=== PATIENT | female | born 1990 | race Hispanic/Latino ===

== ENCOUNTER 2019-06-26 04:42 | Outpatient (CLI) | payer MEDICAID ==
[2019-06-26] MEDS ORDERED: LACTATED RINGERS 1,000 ML ONE (05:49)
[2019-06-26] MEDS ORDERED: LACTATED RINGERS 1,000 ML IV SCH (07:00)
[2019-06-26 08:43] VITALS: BP 115/72
== END 2019-06-26 09:00 | disposition home or self-care (01) ==
LOC: TRG 04:42
PROVIDERS: ATTEND Obstetrics & Gynecology
DX: O62.9 Abnormality of forces of labor, unspecified (principal); O09.213 Supervision of pregnancy with history of pre-term labor, third trimester; O26.893 Other specified pregnancy related conditions, third trimester; R10.9 Unspecified abdominal pain; O99.013 Anemia complicating pregnancy, third trimester; Z3A.38 38 weeks gestation of pregnancy
CPT/HCPCS: 59025; J7120; 96360

== ENCOUNTER 2021-08-02 21:48 | Emergency (ER) | payer SELFPAY ==
[2021-08-02 22:15] VITALS: BP 108/52
[2021-08-02] MEDS ORDERED: IBUPROFEN 600 MG TAB PO ONE (23:39)
[2021-08-02] MEDS ORDERED: SODIUM CHLORIDE 0.9% 1000 ML 1,000 ML IV ONE (23:39)
[2021-08-02] MEDS ORDERED: ACETAMINOPHEN 500 MG TAB PO ONE (23:39)
[2021-08-03 00:39] LABS: Basophils % (Auto) 0.2 % (0.0-1.8); Eosinophils % (Auto) 0.2 % (0.0-4.3); Hematocrit 30.2 % (30.3-42.9); Hemoglobin 10.5 gm/dl (10.1-14.3); Lymphocytes # (Auto) 0.8 K/mm3 (1.2-5.4); Lymphocytes % (Auto) 7.8 % (13.4-35.0); Mean Corpuscular HGB Conc 35 % (30-34); Mean Corpuscular Volume 89 fl (79-97); Monocytes # (Auto) 1.5 K/mm3 (0.0-0.8); Monocytes % (Auto) 14.9 % (0.0-7.3); Platelet Count 223 K/mm3 (140-440); Red Cell Distribution Width 13.7 % (13.2-15.2)
[2021-08-03 00:55] LABS: Alanine Aminotransferase 54 units/L (7-56); Albumin 2.9 g/dL (3.9-5); BUN/Creatinine Ratio 8; Blood Urea Nitrogen 7 mg/dL (7-17); Calcium 9.2 mg/dL (8.4-10.2); Hemolysis Index 0
[2021-08-03] MEDS ORDERED: POTASSIUM CHLORIDE ER 20 MEQ TAB PO ONE (01:00)
--- NOTE | 2021-08-03 01:49 | XRay Report ---
CHEST 2 VIEWS INDICATION / CLINICAL INFORMATION: COUGH, FEVER STUDY TIME: 131 COMPARISON: None available. FINDINGS: SUPPORT DEVICES: None. HEART / MEDIASTINUM: No significant abnormality. LUNGS / PLEURA: No significant acute pulmonary or pleural abnormality. No pneumothorax. ADDITIONAL FINDINGS: No significant additional findings. Signer Name: Dhruv Jones MD Signed: 08/03/2021 1:45 AM Workstation Name: [id number]
[2021-08-03] MEDS ORDERED: ACETAMINOPHEN 500 MG TAB ONE (02:09)
[2021-08-03] MEDS ORDERED: IBUPROFEN 600 MG TAB PO ONE (02:09)
[2021-08-03 03:15] LABS: Bacteria,Urine 3+ /HPF (Negative); Mucus,Urine FEW /HPF
[2021-08-03 03:31] LABS: Bilirubin,Urine Negative (Negative); Blood,Urine 3+ (Negative); Color,Urine Straw (Yellow)
--- NOTE | 2021-08-03 03:42 | Emergency Department Report ---
- General Chief Complaint: Fever Stated Complaint: GENERAL WEAKNESS Source: patient Mode of arrival: Ambulatory Limitations: No Limitations - History of Present Illness Initial Comments: Patient is a 30-year-old white female with no past medical history who presents to the ED with complaint of acute onset persistent nasal and sinus congestion, frontal sinus pressure, persistent dry cough, intermittent fever and chills with diaphoresis, generalized weakness and fatigue, nausea and vomiting for the last 4 days. Patient states that she has been taking [id number] decongestant medications with no relief. Patient states that no one else at home is had similar symptoms. Patient denies dizziness, syncope, chest pain or shortness of breath, abdominal pain, dysuria, urinary frequency and urgency, vaginal bleeding, vaginal discharge, or change in vision or sore throat. MD Complaint: fever, cough, rhinorrhea, nasal congestion, sinus pain, other (diffuse body aches and pains; frontal sinus headache) -: Sudden, days(s) (4) Severity: severe Severity scale (0 -10): 7 Quality: sharp, dull, aching Consistency: constant Improves With: nothing Worsens With: nothing Context: sick contacts Associated Symptoms: denies other symptoms, fever, chills, myalgias, headache, rhinorrhea, nasal congestion, cough, nausea, vomiting. denies: diaphoresis, sore throat, stiff neck, chest pain, shortness of breath, abdominal pain, diarrhea, dysuria, rash, confusion, right sweats, epistaxis, hoarseness, ear pain Treatments Prior to Arrival: "cold medicine" - Related Data Previous Rx's Medication Instructions Recorded Last Taken Type Ferrous Sulfate [Feosol 325 MG tab] 325 mg PO BID #60 tablet 07/05/19 Unknown Rx Vit-Fe Fumar-FA [ 1 each PO QDAY #30 tablet 07/05/19 Unknown Rx Vitamin] Amoxicillin/Potassium Clav 1 each PO Q12H #20 tablet 08/03/21 Unknown Rx [Augmentin 875-125 Tablet] Benzonatate [Tessalon Perles] 100 mg PO Q8HR #30 capsule 08/03/21 Unknown Rx Cetirizine HCl [Zyrtec 10mg tab] 10 mg PO DAILY #30 tablet 08/03/21 Unknown Rx Ibuprofen [Motrin 600 MG tab] 600 mg PO Q6H #30 tablet 08/03/21 Unknown Rx Ondansetron [Zofran Odt] 4 mg PO Q6HR PRN #20 tab.rapdis 08/03/21 Unknown Rx Allergies Allergy/AdvReac Type Severity Reaction Status Date / Time No Known Allergies Allergy Unverified 06/26/19 06:04 ED Review of Systems ROS: Stated complaint: GENERAL WEAKNESS Other details as noted in HPI Constitutional: chills, fever, malaise, weakness Eyes: denies: eye pain, eye discharge, vision change ENT: congestion. denies: ear pain, throat pain Respiratory: cough. denies: shortness of breath, wheezing Cardiovascular: denies: chest pain, palpitations Endocrine: no symptoms reported Gastrointestinal: nausea, vomiting. denies: abdominal pain, diarrhea Genitourinary: denies: urgency, dysuria, discharge Musculoskeletal: arthralgia, myalgia. denies: back pain, joint swelling Skin: denies: rash, lesions Neurological: headache. denies: weakness, paresthesias Psychiatric: denies: anxiety, depression Hematological/Lymphatic: denies: easy bleeding, easy bruising ED Past Medical Hx - Past Medical History Previous Medical History?: No Hx Hypertension: No Hx Diabetes: No Hx Deep Vein Thrombosis: No Hx Renal Disease: No Hx Sickle Cell Disease: No Hx Seizures: No Hx Asthma: No - Surgical History Past Surgical History?: No - Social History Smoking Status: Never Smoker - Medications Home Medications: Home Medications Medication Instructions Recorded Confirmed Last Taken Type Ferrous Sulfate [Feosol 325 MG tab] 325 mg PO BID #60 tablet 07/05/19 Unknown Rx Vit-Fe Fumar-FA [ 1 each PO QDAY #30 tablet 07/05/19 Unknown Rx Vitamin] Amoxicillin/Potassium Clav 1 each PO Q12H #20 tablet 08/03/21 Unknown Rx [Augmentin 875-125 Tablet] Benzonatate [Tessalon Perles] 100 mg PO Q8HR #30 capsule 08/03/21 Unknown Rx Cetirizine HCl [Zyrtec 10mg tab] 10 mg PO DAILY #30 tablet 08/03/21 Unknown Rx Ibuprofen [Motrin 600 MG tab] 600 mg PO Q6H #30 tablet 08/03/21 Unknown Rx Ondansetron [Zofran Odt] 4 mg PO Q6HR PRN #20 tab.rapdis 10/01/21 Unknown Rx ED Physical Exam - General Limitations: No Limitations General appearance: alert, in no apparent distress - Head Head exam: Present: atraumatic, normocephalic, normal inspection - Eye Eye exam: Present: normal appearance, PERRL, EOMI Pupils: Present: normal accommodation - ENT ENT exam: Present: normal orophraynx, mucous membranes moist, TM's normal bilaterally, normal external ear exam, other (Grossly congested nasal passages; palpable frontal and maxillary sinus tenderness) - Neck Neck exam: Present: normal inspection, full ROM - Respiratory Respiratory exam: Present: normal lung sounds bilaterally. Absent: respiratory distress, wheezes, rales, rhonchi, chest wall tenderness, accessory muscle use, prolonged expiratory, other - Cardiovascular Cardiovascular Exam: Present: normal rhythm, tachycardia, normal heart sounds. Absent: systolic murmur, diastolic murmur, rubs, gallop - GI/Abdominal GI/Abdominal exam: Present: soft, normal bowel sounds. Absent: distended, tenderness, guarding, rebound, hyperactive bowel sounds, hypoactive bowel sounds, organomegaly, mass - Extremities Exam Extremities exam: Present: normal inspection, full ROM, normal capillary refill - Back Exam Back exam: Present: normal inspection, full ROM. Absent: tenderness, CVA tenderness (R), CVA tenderness (L), muscle spasm, paraspinal tenderness, vertebral tenderness - Neurological Exam Neurological exam: Present: alert, oriented X3, CN II-XII intact, normal gait, reflexes normal - Psychiatric Psychiatric exam: Present: normal affect, normal mood - Skin Skin exam: Present: warm, dry, intact, normal color. Absent: rash ED Course Vital Signs 08/02/21 22:12 Temperature 100.5 F H Pulse Rate 127 H Respiratory 16 Rate Blood Pressure 108/52 O2 Sat by Pulse 97 Oximetry ED Medical Decision Making - Lab Data Result diagrams: 08/02/21 23:59 08/02/21 23:59 - Radiology Data Radiology results: report reviewed, image reviewed [facility] [address] [place] [address] XRay Report Signed Patient: CLAUDINE SOTO MR#: [id number] : 1990 Acct:[id number] Age/Sex: 30 / F ADM Date: 08/02/21 Loc: ED Attending Dr: Ordering Physician: MARYSE CASTRO Date of Service: 08/02/21 Procedure(s): XR chest routine 2V Accession Number(s): [id number] cc: MARYSE CASTRO Fluoro Time In Minutes: CHEST 2 VIEWS INDICATION / CLINICAL INFORMATION: COUGH, FEVER STUDY TIME: 131 COMPARISON: None available. FINDINGS: SUPPORT DEVICES: None. HEART / MEDIASTINUM: No significant abnormality. LUNGS / PLEURA: No significant acute pulmonary or pleural abnormality. No pneumothorax. ADDITIONAL FINDINGS: No significant additional findings. Signer Name: Dhruv Jones MD Signed: 08/03/2021 1:45 AM Workstation Name: [id number] Transcribed By: GJ Dictated By: Dhruv Jones MD Electronically Authenticated By: Dhruv Jones MD Signed Date/Time: 08/03/21144 DD/ 4 TD/TT: - Medical Decision Making This is a 30-year-old white female with no past medical history who presents to the ED with complaint of acute onset persistent nasal and sinus congestion, frontal sinus pressure, persistent dry cough, intermittent fever and chills with diaphoresis, generalized weakness and fatigue, nausea and vomiting for the last 4 days. Patient states that she has been taking clit-cjk-kuulaww decongestant medications with no relief. Patient states that no one else at home is had similar symptoms. In the ED, patient is alert and oriented x3 and is not in any distress. Patient however is tachycardic and febrile in triage. Patient was treated for fever in the ED, also received normal saline 1 L IV bolus x1, also got treated for nausea and vomiting. Chest x-ray showed no acute cardiopulmonary abnormalities or pneumonitis. Lab test results were reviewed and are all nonactionable except for mild hypokalemia and urinary tract infection in urinalysis. On reevaluation, patient's tachycardia and fever resolved. Patient was discharged home on medications advised to follow-up with her primary care physician in 7 to 10 days for reevaluation or return to the ED immediately if symptoms get worse. - Differential Diagnosis COVID-19; bronchitis; URI; sinusitis; UTI; pneumonia Critical care attestation.: If time is entered above; I have spent that time in minutes in the direct care of this critically ill patient, excluding procedure time. ED Disposition Clinical Impression: Acute upper respiratory infection, Acute urinary tract infection Acute frontal sinusitis Qualifiers: Recurrence: non-recurrent Qualified Code(s): J01.10 - Acute frontal sinusitis, unspecified Acute bronchitis Qualifiers: Bronchitis organism: unspecified organism Qualified Code(s): J20.9 - Acute bro nchitis, unspecified Disposition: 01 HOME / SELF CARE / HOMELESS Is pt being admited?: No Does the pt Need Aspirin: No Condition: Stable Instructions: Acute Bronchitis (ED), Sinusitis, Adult, [id number]-wx-[id number], Upper Respiratory Infection, Adult, Cmsg-ig-Tjud, Urinary Tract Infection, Adult, Xciy-ra-Zibt, Acute Bronchitis, Adult, Prhr-vn-Vidy Additional Instructions: All lab test results were reviewed and are all nonactionable except for mild urinary tract infection and mild hypokalemia. Chest x-ray showed no acute cardiopulmonary abnormalities or pneumonitis. Therefore take medication with food, drink plenty of fluids and follow-up with your primary care physician in 7 to 10 days for reevaluation. Return to the ED immediately if symptoms get worse. Prescriptions: Amoxicillin/Potassium Clav [Augmentin 875-125 Tablet] 1 each PO Q12H #20 tablet Ibuprofen [Motrin 600 MG tab] 600 mg PO Q6H #30 tablet Benzonatate [Tessalon Perles] 100 mg PO Q8HR #30 capsule Ondansetron [Zofran Odt] 4 mg PO Q6HR PRN #20 tab.rapdis PRN Reason: Nausea Cetirizine HCl [Zyrtec 10mg tab] 10 mg PO DAILY #30 tablet Referrals: [facility] [Provider Group] - 7-10 days Forms: Work/School Release Form(ED) Time of Disposition: 03:44 Print Language: TAJIK
== END 2021-08-03 04:55 | disposition home or self-care (01) ==
LOC: ED 21:48
DX: J06.9 Acute upper respiratory infection, unspecified (principal); N39.0 Urinary tract infection, site not specified; J01.10 Acute frontal sinusitis, unspecified; J20.9 Acute bronchitis, unspecified; Z79.899 Other long term (current) drug therapy
CPT/HCPCS: 36415; 71046; 80053; 81001; 84703; 85025; 87076; 87086; 87186; 96360; 99284; J7030

== ENCOUNTER 2022-06-24 07:07 | Inpatient (IN) | payer MEDICAID ==
[2022-06-24] MEDS ORDERED: OXYTOCIN DRIP 30,000 MILLIUNITS/500 ML BAG IV ONE (07:26)
[2022-06-24] MEDS ORDERED: fentaNYL 100 MCG/2 ML INJ ONE (07:34)
[2022-06-24] MEDS ORDERED: fentaNYL 100 MCG/2 ML INJ IV NR (07:35)
--- NOTE | 2022-06-24 07:57 | Procedure Note ---
OB Delivery Note - Delivery Date of Delivery: 06/24/22 Automotive Glass Technician: BRAD SOARES Estimated blood loss: 300cc - Vaginal Delivery placenta: spontaneous Delivery laceration: none Delivery comments: Emergency alarm activated by RN, arrived to room infant already delivered and on warmer. Relieved RN Jeri to deliver placenta. IM pitocin given. Placenta delivered spontaneously intact and complete with 3 vessel cord. perineum, vagina, and cervix inspected. No lacerations noted. EBL 300cc. APGARS 8/9, Weight 8#1oz. Baby and mom LDR stable in care of RN. - Infant A at 1 minute: 8 at 5 minutes: 9 (wgt 8#1oz) Gender: Male
--- NOTE | 2022-06-24 08:10 | History and Physical Report ---
History of Present Illness Date of examination: 06/24/22 Date of admission: 06/24/22 08:02 Chief complaint: contractions History of present illness: 31y/o @ 40+0 weeks presents in active labor with advanced cervical dilation. The patient has not had care during the . GBS status unknown. The patient has a history of a prior delivery. Past History Past Medical History: no pertinent history Past Surgical History: section Social history: - Obstetrical History Expected Date of Delivery: 06/24/22 Actual Gestation: 40 Week(s) 0 Day(s) : 6 Para: 4 Hx # Term Pregnancies: 4 Number of Pregnancies: 0 Spontaneous Abortions: 1 Induced : 0 Number of Living Children: 4 Medications and Allergies Allergies Allergy/AdvReac Type Severity Reaction Status Date / Time No Known Allergies Allergy Unverified 06/26/19 06:04 Home Medications Medication Instructions Recorded Confirmed Last Taken Type Ferrous Sulfate [Feosol 325 MG tab] 325 mg PO BID #60 tablet 07/05/19 Unknown Rx Vit-Fe Fumar-FA [ 1 each PO QDAY #30 tablet 07/05/19 Unknown Rx Vitamin] Amoxicillin/Potassium Clav 1 each PO Q12H #20 tablet 08/03/21 Unknown Rx [Augmentin 875-125 Tablet] Benzonatate [Tessalon Perles] 100 mg PO Q8HR #30 capsule 08/03/21 Unknown Rx Cetirizine HCl [Zyrtec 10mg tab] 10 mg PO DAILY #30 tablet 08/03/21 Unknown Rx Ibuprofen [Motrin 600 MG tab] 600 mg PO Q6H #30 tablet 08/03/21 Unknown Rx Ondansetron [Zofran Odt] 4 mg PO Q6HR PRN #20 tab.rapdis 08/03/21 Unknown Rx Active Meds: Active Medications Fentanyl (Fentanyl 100 Mcg/2 Ml Inj) 100 mcg IV ONCE NR Stop: 06/24/22 23:00 Review of Systems All systems: negative Genitourinary: leakage of fluid, contractions - Vital Signs Vital signs: Vital Signs Pulse Pulse Ox 94 H 92 06/24/22 07:09 06/24/22 07:09 Temp Pulse Resp BP Pulse Ox 74 130/78 97 06/24/22 08:04 06/24/22 07:53 06/24/22 08:04 - Physical Exam Breasts: Positive: deferred Cardiovascular: Regular rate Lungs: Positive: Clear to auscultation Abdomen: Positive: normal appearance Results All other labs normal. Assessment and Plan - Patient Problems (1) Insufficient care Current Visit: Yes Status: Acute Plan to address problem: admit to Labor and delivery (2) (vaginal after ) Onset Date: 07/05/19 Current Visit: No Status: Resolved
[2022-06-24] MEDS ORDERED: ONDANSETRON 4 MG/2 ML INJ IV PRN (09:00)
[2022-06-24] MEDS ORDERED: ACETAMINOPHEN 325 MG TAB PO PRN (09:00)
[2022-06-24] MEDS ORDERED: LANOLIN/ZINC/DIMETHICONE (LANSINOH) 7 GM TP PRN (09:00)
[2022-06-24] MEDS ORDERED: diphenhydrAMINE 25 MG CAP PO PRN (09:00)
[2022-06-24] MEDS ORDERED: WITCH HAZEL/ GLYCERIN PAD TP PRN (09:00)
[2022-06-24] MEDS ORDERED: PROMETHAZINE 25 MG RECT SUPP PR PRN (09:00)
[2022-06-24] MEDS ORDERED: PROMETHAZINE 25 MG TAB PO PRN (09:00)
[2022-06-24 10:47] LABS: Basophils % (Auto) 0.6 % (0.0-1.8); Eosinophils % (Auto) 0.1 % (0.0-4.3); Hematocrit 33.3 % (30.3-42.9); Hemoglobin 10.7 gm/dl (10.1-14.3); Lymphocytes # (Auto) 1.5 K/mm3 (1.2-5.4); Lymphocytes % (Auto) 21.5 % (13.4-35.0); Mean Corpuscular HGB Conc 32 % (30-34); Mean Corpuscular Volume 82 fl (79-97); Monocytes # (Auto) 0.6 K/mm3 (0.0-0.8); Monocytes % (Auto) 8.7 % (0.0-7.3); Platelet Count 167 K/mm3 (140-440); Red Blood Count 4.05 M/mm3 (3.65-5.03); Red Cell Distribution Width 16.7 % (13.2-15.2)
[2022-06-24 13:49] LABS: Benzodiazepines Screen,Urine Negative; Cannabinoid Screen,Urine Negative; Cocaine Screen,Urine Negative; Methadone Screen,Urine Negative; Opiate Screen,Urine Negative
[2022-06-24 13:56] LABS: RBC,Urine > 182.0 /HPF (0.0-6.0)
[2022-06-24] MEDS: HYDROcodone/ACETAMINOPHEN 5-325 MG TAB PO PRN ×2 (14:16→20:45)
[2022-06-24 14:20] LABS: Color,Urine Amber (Yellow)
[2022-06-24 15:36] LABS: Amphetamine Screen,Urine Positive
[2022-06-24] MEDS ORDERED: MAGNESIUM HYDROXIDE (MOM) ORAL LIQD UDC PO PRN (22:00)
[2022-06-24] MEDS: IBUPROFEN 800 MG TAB PO SCH (23:38)
[2022-06-25] MEDS: HYDROcodone/ACETAMINOPHEN 5-325 MG TAB PO PRN (05:05)
--- NOTE | 2022-06-25 08:44 | Progress Note ---
Assessment and Plan A: PPD#1 s/p at term. P: Continue with routine care with discharge anticipated tomorrow. Subjective - Subjective Date of service: 06/25/22 Principal diagnosis: PPD#1 s/p at term Interval history: Patient is resting and is without complaints. She reports no pain, no issues with ambulation, voiding and decreasing lochia. Patient reports: appetite normal, voiding normally, pain well controlled, ambulating normally [place]: doing well Objective - Vital Signs Latest vital signs: Vital Signs Temp Pulse Resp BP BP Pulse Ox Pulse Ox 06/24/22 23:38 97.1 F L 69 20 145/82 99 06/24/22 20:45 97 06/24/22 16:25 97.7 F 72 18 128/79 98 06/24/22 11:30 99 06/24/22 11:20 97.4 F L 79 16 126/51 99 06/24/22 09:46 97.8 F 68 138/64 06/24/22 09:39 63 99 06/24/22 09:38 61 138/67 06/24/22 09:34 93 H 94 06/24/22 09:29 77 99 06/24/22 09:26 90 91 06/24/22 09:24 68 100 06/24/22 09:23 63 149/80 06/24/22 09:19 69 98 06/24/22 09:14 70 100 06/24/22 09:10 89 89 06/24/22 09:09 65 100 06/24/22 09:08 66 145/86 06/24/22 09:04 68 99 06/24/22 08:59 63 100 06/24/22 08:54 70 99 06/24/22 08:53 72 92 06/24/22 08:50 98.0 F 06/24/22 08:49 69 99 Intake and Output 06/24/22 06/25/22 06/25/22 23:59 07:59 15:59 Intake Total 1200 600 Output Total 500 Balance 700 600 Intake: Oral 360 600 Intake, Free Water 840 Output: Urine 500 Void 500 Other: Total, Intake Amount 360 240 Total, Output Amount 500 # Voids Void 1 - Labs Labs: Abnormal lab results 06/24/22 Range/Units 08:15 MCH 26 L (28-32) pg RDW 16.7 H (13.2-15.2) % [place] % (Auto) 8.7 H (0.0-7.3) %
[2022-06-25] MEDS: IBUPROFEN 800 MG TAB PO SCH ×3 (12:35→23:00)
[2022-06-26] MEDS: IBUPROFEN 800 MG TAB PO SCH ×3 (06:19→18:03)
--- NOTE | 2022-06-26 08:33 | Discharge Summary ---
Providers - Providers Date of Admission: 06/24/22 08:12 Date of discharge: 06/26/22 Attending physician: LUKE VENEGAS 06/24/22 16:08 Consult to Case Management [CONS] Routine Services Needed at Discharge: Project Design Engineer Notified:: Hansa Phone number called:: [phone] Was contact made?: Yes If yes, spoke with:: Hansa Time called:: 16:10 Comment:: Positive for Amphetamines Primary care physician: LUKE VENEGAS Hospitalization Reason for admission: active labor Delivery: Episiotomy: none Laceration: none Other procedures: none complications: none Discharge diagnosis: IUP at term delivered baby: male Hospital course: 31y/o @ 40+0 weeks presents in active labor with advanced cervical dilation. The patient has not had care during the . GBS status unknown. The patient has a history of a prior delivery. Delivered viable infant via . Criteria for mother met for discharge on PPD#2. Condition at discharge: Good Disposition: 01 HOME / SELF CARE / HOMELESS - Discharge Diagnoses (1) (vaginal after ) Status: Resolved (2) Positive urine drug screen Status: Acute Plan - Discharge Medications Prescriptions: Ibuprofen [Motrin 800 MG tab] 800 mg PO Q8HR #30 tablet - Provider Discharge Summary Activity: routine, no sex for 6 weeks, no heavy lifting 4 weeks, no strenuous exercise Diet: other (Iron rich diet) Instructions: routine Additional instructions: [] Smoking cessation referral if applicable(refer to patient education folder for contact #) [] Refer to [facility]'s [facility] Booklet Call your doctor immediately for: * Fever > 100.5 * Heavy vaginal bleeding ( >1 pad per hour) * Severe persistent headache * Shortness of breath * Reddened, hot, painful area to leg or breast * Drainage or odor from incision. * Keep incision clean and dry at all times and follow doctor's instructions regarding bathing/showering - Follow up plan Follow up: LUKE VENEGAS MD [Primary Care Provider] - 6 Weeks
[2022-06-26 18:06] VITALS: BP 124/77
== END 2022-06-26 18:46 | disposition home or self-care (01) | DRG 775 ==
LOC: TRG 07:07 → LD 07:08 → TRG 08:01 → UNDOADMIN 08:02 → LD 08:02 → UNDOADMIN 08:11 → LD 08:12 → OB 11:33
PROVIDERS: ADMIT Obstetrics & Gynecology; ATTEND Obstetrics & Gynecology
PROC: 10E0XZZ Delivery of Products of Conception, External Approach (ICD-10-PCS; principal; 2022-06-24)
DX: O34.211 Maternal care for low transverse scar from previous cesarean delivery (principal); Z37.0 Single live birth; Z3A.40 40 weeks gestation of pregnancy; Z20.822 Contact with and (suspected) exposure to COVID-19
CPT/HCPCS: 36415; 59025; 80307; 81001; 85025; 86592; 86706; 86762; 86850; 86900; 86901; 87806; 96360; 96372; G0378; J3010; U0003